=== PATIENT | female | born 1960 | race Caucasian/White ===

== ENCOUNTER → 2019-01-13 | Outpatient (CLI) | payer BC ==
[2019-01-13 09:56] LABS: INR 0.8 (<1.2); Partial Thromboplastin Time 24.7 sec (22.0-30.0); Prothrombin Time 9.4 sec (9.0-12.0)
[2019-01-13 10:04] LABS: Appearance,Urine Cloudy (Clear); Bacteria,Urine Rare /hpf; Bilirubin,Urine Negative (Negative); Blood,Urine Negative (Negative); Color,Urine Yellow; Glucose,Urine (UA) Negative (Negative); Ketones,Urine Negative (Negative); Leukocyte Esterase,Urine Small (Negative); Mucus,Urine Rare /hpf; Nitrite,Urine Negative (Negative); PH, Urine 5.5 (5.0-8.0); Protein,Urine Negative (Negative); RBC,Urine 1 /hpf (0-5); Specific Gravity,Urine 1.014 (1.001-1.035); Squamous Epithelial Cell,Urine 10 /hpf (0-4); Urobilinogen,Urine <2.0 mg/dL (<2.0); WBC,Urine 9 /hpf (0-5)
[2019-01-13 10:15] LABS: ALT 19 U/L (9-52); AST 18 U/L (14-36); African American GFR (CKD) >90 (>60 ml/min/1.73 sqM); Albumin 4.5 g/dL (3.5-5.0); Alkaline Phosphatase 103 U/L (38-126); Anion Gap 9 mmol/L; Blood Urea Nitrogen 13 mg/dL (7-17); Calcium 9.8 mg/dL (8.4-10.2); Carbon Dioxide 27 mmol/L (22-30); Chloride 102 mmol/L (98-107); Glucose 117 mg/dL (74-99); Potassium 4.7 mmol/L (3.5-5.1); Sodium 138 mmol/L (137-145); Total Bilirubin 0.3 mg/dL (0.2-1.3); Total Protein 7.8 g/dL (6.3-8.2)
== END ==
LOC: LABPAT 08:13
PROVIDERS: ATTEND Orthopaedic Surgery
DX: Z01.818 Encounter for other preprocedural examination (principal); Z01.812 Encounter for preprocedural laboratory examination
CPT/HCPCS: 80053; 81001; 85610; 85730; 87070; 93005

== ENCOUNTER → 2019-01-13 | Outpatient (CLI) | payer BC ==
[2019-01-13 11:09] LABS: Basophils # (A) 0.1 k/uL (0-0.2); Basophils % (A) 2 %; Eosinophils # (A) 0.1 k/uL (0-0.7); Eosinophils % (A) 1 %; HCT 41.3 % (34.0-46.0); HGB 13.5 gm/dL (11.4-16.0); Lymphocytes # (A) 1.2 k/uL (1.0-4.8); Lymphocytes % (A) 16 %; MCH 28.8 pg (25.0-35.0); MCHC 32.7 g/dL (31.0-37.0); Mean Platelet Volume 7.2; Monocytes # (A) 0.4 k/uL (0-1.0); Monocytes % (A) 5 %; Neutrophils # (A) 5.6 k/uL (1.3-7.7); Neutrophils % (A) 75 %; Platelet Count 407 k/uL (150-450); RBC 4.69 m/uL (3.80-5.40); RDW 14.1 % (11.5-15.5); WBC 7.5 k/uL (3.8-10.6)
== END | disposition home or self-care (01) ==
LOC: LABWHC1 08:18
PROVIDERS: ATTEND Family Medicine
DX: M19.90 Unspecified osteoarthritis, unspecified site (principal); Z82.49 Family history of ischemic heart disease and other diseases of the circulatory system; Z11.59 Encounter for screening for other viral diseases; Z83.49 Family history of other endocrine, nutritional and metabolic diseases
CPT/HCPCS: 36415; 84443; 85025; 86803

== ENCOUNTER 2019-01-25 10:58 | Inpatient (IN) | payer BC ==
[~2019-01-25 10:58] MED LIST: ACETAMINOPHEN TAB 500 MG TAB PO ONE; DEXAMETHASONE SOD PHOSPHATE 10 MG/ML 1 ML VIAL IV ONE; HYDROmorphone 0.5 MG/0.5 ML SYRINGE IVP PRN; LIDOCAINE 1% 20 ML VIAL (10MG/ML) FOR IV START INTRADERMA PRN; MELOXICAM 7.5 MG TAB PO ONE; ONDANSETRON 4 MG/2 ML VIAL IVP ONE; ROPIVACAINE 246.25 MG, EPINEPHrine 0.5 MG, KETOROLAC 30 MG, cloNIDine HCL/PF 80 MCG, WA... MISCELLANE ONE; TRANEXAMIC ACID 1,000 MG in SODIUM CHLORIDE 0.9% 100 ML IVPB ONE; fentaNYL (PF) 50 MCG/ML 2 ML AMP IV PRN
[2019-01-25] MEDS: LACTATED RINGERS 1,000 ML IV SCH ×2 (11:50→17:59)
[2019-01-25] MEDS ORDERED: MIDAZOLAM 2 MG/2 ML VIAL IVP ONE (12:21)
[2019-01-25] MEDS ORDERED: MIDAZOLAM 2 MG/2 ML VIAL ONE (12:44)
[2019-01-25] MEDS ORDERED: TRANEXAMIC ACID 1,000 MG/10 ML VIAL ONE (12:44)
[2019-01-25] MEDS ORDERED: PROPOFOL 10 MG/ML 20 ML VIAL IV ONE (12:44)
[2019-01-25] MEDS ORDERED: SODIUM CHLORIDE 0.9% 100 ML BAG ONE (12:44)
[2019-01-25] MEDS ORDERED: fentaNYL (PF) 50 MCG/ML 2 ML AMP ONE (12:44)
[2019-01-25] MEDS ORDERED: LACTATED RINGERS 1,000 ML IV ONE (13:28)
--- NOTE | 2019-01-25 14:29 | P.OP ---
Date of Procedure: 01/25/19 Procedure(s) Performed: PREOPERATIVE DIAGNOSIS: Right hip severe osteoarthritis POSTOPERATIVE DIAGNOSIS: Right hip severe osteoarthritis OPERATION: Right hip total replacement arthroplasty (uncemented implantation with metal on polyethylene articulation). ANESTHESIA: Spinal ESTIMATED BLOOD LOSS: 250 ml. ADON: Barry Villasenor PA-C (assistance with: patient positioning, retraction, exposure, hemostasis, leg positioning, implantation, irrigation, closure, dressing) COMPLICATIONS: None apparent. COMPONENTS IMPLANTED: Orin continuum acetabular cup with cluster holes; continuum longevity 15 elevated liner, 32 mm id; Orin VerSys Fiber Metal stem; VerSys 32 mm femoral head with +10.5 mm neck length extension INDICATIONS: Mrs. Boo is a 58-year-old female with significant end-stage osteoarthritis involving the right hip and commensurate severe symptoms. She presents to the operating room today for total hip replacement. I have discussed the steps of the operation as well as potential risks and complications as being inclusive of, but not limited to: Leading, infection, s carring, discomfort, or vessel and/or nerve damage, need for further surgery, loosening, dislocation, wear, osteolysis, limb length inequality, fracture, blood clot, pulmonary embolism, , persistent limp, and other risks. The patient is aware these risks and wishes to proceed with surgery and has signed a consent form. PROCEDURE: After appropriate consent was obtained, the patient was taken to the operating room and placed in supine position. Spinal anesthetic was administered and after confirmation of adequate anesthesia, the patient was placed into the lateral decubitus position with the right side up. Care was taken to make sure that all pressure points were adequately padded and he was stabilized to the table with a [place] hip positioner. The right hip was prepped and draped in the usual aseptic fashion using a combination of ChloraPrep and alcohol. [place] drape was used for the case and the patient received intravenous antibiotics prior to the incision. "Time out" was called, confirming patient identity, side, procedure, availability of implants and administration of antibiotics and tranexamic acid. The incision was created directly over the greater trochanter and carried slightly posteriorly for a posterior approach to the hip. The incision was then deepened down to subcutaneous tissue and fascia aaron. Fascia aaron was split in line with the incision and split proximally along the fibers of the gluteus valentina. The underlying fibers of the muscle were teased apart using finger dissection and bleeding vessels were picked up and coagulated. Retractor was then placed posteriorly consisting of a blunt Sin. The short external rotators and capsule were exposed using good visualization of the attachment of the external rotators to the femur was established. The short external rotators and capsule were released using electrocautery from their femoral attachments. A hockey stick shaped incision was created in the capsule. Joint fluid was evacuated and the patient's hip was able to be dislocated fairly easily. The patient's femoral head was severely arthritic with eburnated bone present and a 360 degrees hodgson of osteophytes. The femoral neck cut was created approximately 1 cm superior to the lesser trochanter using a reciprocating saw. The femoral head and neck fragment was removed and attention was then directed to the acetabulum. An anterior acetabular retractor was applied followed by posterior retraction of the capsule with a [place] retractor. This afforded good visualization into the acetabular cavity. Soft tissue was removed and residual cartilage within the acetabular vault was removed using a curette. Labrum was removed using a long-handled knife. Attention was then directed to reaming. The size 44 reamer was used first, followed by increasing increments until the final size reamer was used. Please see the implantation sheet for exact sizes used for the components. Once the final reamer had been utilized to expand the socket it was noted that there was a good supportive bone around the acetabular socket and no further reaming needed to be performed. The trial the same size as the last reamer used was then impacted into the acetabular vault and found to have good fit. The acetabular component, one size (2mm) greater than the trial was then called for. The cluster holes were placed posteriorly and the component was impacted in a position of approximately 40 degrees abduction and 20 degrees anteversion. This matched this patient's [place] anteversion and it was noted that the cup had excellent stability without need for additional screw fixation. Attention was then directed to the acetabular liner. The anteversion and abduction angle of the component was noted to be very good. A 15 elevated liner was used and locked into position with the elevation posterior superior. Osteophytes around the posterior and inferior aspect of the acetabulum were trimmed as necessary to prevent any impingement. Attention was then directed back to the proximal femur. Retractors were placed around the proximal femur and box osteotome was used followed by canal finder and trochanteric reamer. Cylindrical reaming was performed. Progressive broaching was then performed starting with a #10 broach and progressing final size, in a position of 15 degrees anteversion. [place] anteversion was within 5 degrees of stem position. The final size broach had excellent fit and fill of the patient's metaphysis and diaphysis. Trial reduction was then performed starting with size 32 mm femoral head and various neck combination of stability, limb length equality, and soft tissue tension. Trial components were then removed. The canal was lavaged and the final size femoral stem component was impacted into position. The implant fit very well and had excellent stability. The femoral head was then impacted onto the [place] taper. Blood and debris were removed from the acetabular component and the hip was then reduced and checked f or stability, limb length and soft tissue tension. These parameters found to be satisfactory, the wound was then thoroughly irrigated with normal saline. Final hemostasis was obtained using electrocautery and IV tranexamic acid, 1 g given at the time of prepping and draping, and another 1 g given at the time of closure. Local anesthetic solution consisting of ropivacaine with epinephrine, clonidine, and ketorolac was also used throughout the case targeting the capsule, fascia, and skin. Closure of the capsule was performed meticulously using #3 Vicryl suture. Four [id number] sutures were placed in the posterior capsule along with repair of the external rotators. The fascia aaron was then repaired using combination of #3 Vicryl suture in interrupted fashion and [place]ill and running fashion. 2-0 Vicryl suture was used for the subcutaneous tissues and 3-0 Quill for the skin. Dermabond or Steri-Strips were then applied. The patient tolerated the procedure well. There were no complications and the wound bed was dry and there was no need for drain placement. Sterile dressing was then applied and the patient was carefully removed from the operating room table, placed on the stretcher and was taken to the recovery room in stable condition. Sponge and needle counts were correct.
[2019-01-25] MEDS ORDERED: hydrOXYzine PAMOATE 25 MG CAP PO PRN (14:52)
[2019-01-25] MEDS ORDERED: HYDROmorphone 1 MG/ML 1 ML SYRINGE IVP PRN (14:52)
[2019-01-25] MEDS ORDERED: DIAZEPAM 5 MG TAB PO PRN (14:52)
[2019-01-25] MEDS ORDERED: HYDROmorphone 0.5 MG/0.5 ML SYRINGE IVP PRN ×2 (14:52)
[2019-01-25] MEDS ORDERED: ACETAMINOPHEN TAB 325 MG TAB PO PRN (14:52)
[2019-01-25] MEDS ORDERED: HYDROcodone/APAP 10-325MG 1 EACH TAB PO PRN (14:52)
[2019-01-25] MEDS ORDERED: traMADol 50 MG TAB PO PRN (14:52)
[2019-01-25] MEDS ORDERED: ONDANSETRON 4 MG/2 ML VIAL IVP PRN (14:52)
[2019-01-25] MEDS ORDERED: MAGNESIUM HYDROXIDE 2,400 MG/10 ML CUP PO PRN (14:52)
[2019-01-25] MEDS ORDERED: TEMAZEPAM 15 MG CAP PO PRN (14:52)
[2019-01-25] MEDS ORDERED: NALOXONE 0.4 MG/ML 1 ML VIAL IV PRN (14:52)
--- NOTE | 2019-01-25 15:30 | XR ---
EXAMINATION TYPE: XR Hip Limited RT DATE OF EXAM: 01/25/2019 Comparison: None Clinical History: 58-year-old female Status post hip surgery, assess surgical alignment Findings: Images show placement of right hip total arthroplasty. Both acetabular cup and femoral stem component s of the prosthesis appear well seated without periprosthetic fracture. Alignment grossly anatomic. S oft tissue air related to recent operation. Impression: Uncomplicated postoperative appearance right total hip arthroplasty.
[2019-01-25 17:50] VITALS: BMI 34.2
[2019-01-25] MEDS: SENNOSIDES-DOCUSATE SODIUM 1 EACH TAB PO SCH (20:59)
[2019-01-25] MEDS: ASPIRIN 325 MG TAB PO SCH (20:59)
[2019-01-25] MEDS: HYDROcodone/APAP 10-325MG 1 EACH TAB PO PRN (21:39)
--- NOTE | 2019-01-25 22:34 | P.CONS ---
History of Present Illness - Reason for Consult Consult date: 01/25/19 Medical management Requesting physician: Tremayne Reilly - Chief Complaint Right hip surgery - History of Present Illness Consultation: This is a very pleasant 58-year-old patient who follows with Dr. Tobar. Patient has undergone right total hip arthroplasty. Has been out of bed. Pain is controlled. No nausea vomiting. No chest pain or shortness of breath. Patient's symptoms came on about 2 years ago. Was starting to finally difficult to walk on it. Conservative management did work. Pain was both with activity and better with rest at the hip joint. 5 decided to proceed with surgery. Patient also got pain of the left hip and also had muscle spasms. at the bedside. Review of systems: GEN.: None EYES: None HEENT: None NECK: None RESPIRATORY: None CARDIOVASCULAR: None GASTROINTESTINAL: None GENITOURINARY: None MUSCULOSKELETAL: As above] LYMPHATICS: None HEMATOLOGICAL: None PSYCHIATRY: None NEUROLOGICAL: None Past medical history: Osteoarthritis, muscle spasm Social history: Does not smoke or drink alcohol. . Works as a high school operations manager. [employer] Family history: Cancer Physical examination: VITAL SIGNS: 97.7, 90, 18, 11 5/76, 94% room air GENERAL: BMI 34.2, propped up in bed, comfortable. EYES: Pupils equal. Conjunctiva normal. HEENT: External appearance of nose and ears normal, oral cavity grossly normal. NECK: JVD not raised; masses not palpable. HEART: First and second heart sounds are normal; no edema. LUNGS: Respiratory rate normal; clear to auscultation. ABDOMEN: Soft, nontender, liver spleen not palpable, no masses palpable. PSYCH: Alert and oriented x3; mood and affect normal. NEUROLOGICAL: Cranial nerves grossly intact; no facial asymmetry, power and sensation grossly intact. LYMPHATICS: No lymph nodes palpable in the axilla and neck MUSCULOSKELETAL: Dressing over the right hip INVESTIGATIONS, reviewed in the clinical context: Labs from 01/13/2019 White count 7.5 hemoglobin 13.5 platelets 407 potassium 4.7 creatinine 0.61 Assessment: -Right total hip arthroplasty -Primary osteoarthritis of both the hips -Obesity BMI 34.2 -Muscle spasms around to both the hips Plan: Venodyne boots in place. Aspirin 325 by mouth twice a day per Dr. Reilly for DVT prophylaxis. Pain control in place. Care was discussed the patient and . Question were answered. Should follow with PCP upon discharge. Thank you Dr. Reilly Past Medical History Past Medical History: Osteoarthritis (OA) History of Any Multi-Drug Resistant Organisms: None Reported Past Surgical History: Orthopedic Surgery Additional Past Surgical History / Comment(s): bone spurs removed toes wilian feet, D&C Past Anesthesia/Blood Transfusion Reactions: No Reported Reaction Past Psychological History: No Psychological Hx Reported Smoking Status: Never smoker Past Alcohol Use History: Occasional Past Drug Use History: None Reported - Past Family History Father Family Medical History: Cancer Medications and Allergies Home Medications Medication Instructions Recorded Confirmed Type Cyclobenzaprine [Flexeril] 10 mg PO TID PRN 01/22/19 01/25/19 History Allergies Allergy/AdvReac Type Severity Reaction Status Date / Time clindamycin Allergy Rash/Hives Verified 01/25/19 11:45 erythromycin base AdvReac Nausea & Verified 01/25/19 11:45 Vomiting Physical Exam Vitals: Vital Signs Temp Pulse Resp BP Pulse Ox 01/25/19 20:17 97.7 F 90 18 115/76 94 L 01/25/19 17:53 16 01/25/19 15:50 90 16 129/63 95 01/25/19 15:35 85 16 122/66 98 01/25/19 15:20 90 16 121/65 95 01/25/19 15:05 88 16 123/69 96 01/25/19 14:51 99 16 123/69 99 01/25/19 11:45 97.9 F 111 H 16 128/67 96 Intake and Output 01/25/19 01/25/19 01/25/19 06:59 14:59 22:59 Intake Total 1650 325 Output Total 50 125 Balance 1600 200 Intake: IV 1650 Intake, IV Titration 75 Amount Lactated Ringers 1,000 ml 75 @ 75 mls/hr IV .[id number] ARA Rx#:[id number] Oral 250 Output: Urine 125 Estimated Blood Loss 50 Other: Voiding Method Toilet # Voids 1 Weight 84.822 kg
[2019-01-26] MEDS: LACTATED RINGERS 1,000 ML IV SCH ×3 (01:03→03:50)
[2019-01-26] MEDS: HYDROcodone/APAP 10-325MG 1 EACH TAB PO PRN ×3 (03:49→19:12)
[2019-01-26 07:18] LABS: Basophils # (A) 0.1 k/uL (0-0.2); Basophils % (A) 1 %; Eosinophils # (A) 0.1 k/uL (0-0.7); Eosinophils % (A) 1 %; HCT 34.3 % (34.0-46.0); HGB 11.4 gm/dL (11.4-16.0); Lymphocytes # (A) 1.3 k/uL (1.0-4.8); Lymphocytes % (A) 11 %; MCH 29.2 pg (25.0-35.0); MCHC 33.2 g/dL (31.0-37.0); MCV 88.1 fL (80.0-100.0); Mean Platelet Volume 6.8; Monocytes # (A) 0.5 k/uL (0-1.0); Monocytes % (A) 5 %; Neutrophils # (A) 9.2 k/uL (1.3-7.7); Neutrophils % (A) 82 %; Platelet Count 329 k/uL (150-450); RBC 3.89 m/uL (3.80-5.40); RDW 14.3 % (11.5-15.5); WBC 11.2 k/uL (3.8-10.6)
[2019-01-26] MEDS: ASPIRIN 325 MG TAB PO SCH ×2 (08:33→20:37)
--- NOTE | 2019-01-26 09:39 | P.PN ---
Subjective Progress Note Date: 01/26/19 Principal diagnosis: Right PAOLA Patient is seen at bedside this morning. She is postop day #1 from right total hip arthroplasty. She has pain at the surgical site as expected but denies any new complaints. She denies numbness, tingling or calf pain. Review of systems is negative for fever, chills, chest pain, shortness of breath or other Objective - Vital Signs Vital signs: Vital Signs Temp 98.1 F 01/26/19 06:55 Pulse 90 01/26/19 06:55 Resp 16 01/26/19 06:55 BP 114/77 01/26/19 06:55 Pulse Ox 93 L 01/26/19 06:55 Intake & Output 01/25/19 01/26/19 01/26/19 18:59 06:59 18:59 Intake Total 1650 325 110 Output Total 175 Balance 1475 325 110 Weight 84.822 kg Intake: IV 1650 Intake, IV Titration 75 Amount Lactated Ringers 1,000 ml 75 @ 75 mls/hr IV .[id number] ARA Rx#:[id number] Oral 250 110 Output: Urine 125 Estimated Blood Loss 50 Other: Voiding Method Toilet # Voids 1 - Exam Inspection reveals a benign surgical wound. There is no active bleeding or drainage. Neurovascular status is intact throughout the lower extremity with motor and sensation fully intact. Calf is soft and nontender. 2+ dorsalis pedis pulse and less than 2 second cap refill is present. - Constitutional General appearance: Present: no acute distress - Labs CBC & Chem 7: 01/26/19 06:03 Labs: Abnormal Lab Results - Last 24 Hours (Table) 01/26/19 Range/Units 06:03 WBC 11.2 H (3.8-10.6) k/uL Neutrophils # 9.2 H (1.3-7.7) k/uL Assessment and Plan (1) S/P total hip arthroplasty Narrative/Plan: She will continue with routine postop orthopedic protocol including pain management, wound care, PT, DVT prophylaxis and medical management. Expect that she will transfer to home tomorrow Current Visit: Yes Status: Acute Priority: Medium Code(s): Z96.649 - PRESENCE OF UNSPECIFIED ARTIFICIAL HIP JOINT SNOMED Code(s): 143829653660 Time with Patient: Less than 30
[2019-01-26] MEDS ORDERED: MULTIVITAMINS, THERA 1 EACH TAB PO SCH (12:00)
[2019-01-26] MEDS: SENNOSIDES-DOCUSATE SODIUM 1 EACH TAB PO SCH (20:37)
--- NOTE | 2019-01-26 23:16 | P.PN ---
Progress Note - Text Progress Note Date: 01/26/19 - Chief Complaint Right hip surgery interval history: This is a very pleasant 58-year-old patient who follows with Dr. Tobar. Patient has undergone right total hip arthroplasty. Has been out of bed. Pain is controlled. No nausea vomiting. No chest pain or shortness of breath. Patient's symptoms came on about 2 years ago. Was starting to finally difficult to walk on it. Conservative management did work. Pain was both with activity a nd better with rest at the hip joint. 5 decided to proceed with surgery. Patient also got pain of the left hip and also had muscle spasms. at the bedside. today-feeling better. Some pain is present.. Did tolerate her diet. No nausea vomiting. Did work with therapy. Review of systems: Was done for constitutional, cardiovascular, GI, pulmonary.musculoskeletal, relevant finding as above Active Medications Acetaminophen (Tylenol Tab) 650 mg PO Q4HR PRN PRN Reason: Pain Scale 1 to 5 Hydrocodone Bitart/Acetaminophen ([place] 10) 1 each PO Q6H PRN PRN Reason: Pain Scale 1 to 5 Last Admin: 01/26/19 19:12 Dose: 1 each Documented by: Hydrocodone Bitart/Acetaminophen ([place] 10) 2 each PO Q6H PRN PRN Reason: Pain Scale 6 to 10 Aspirin (Aspirin) 325 mg PO BID [facility] Last Admin: 01/26/19 20:37 Dose: 325 mg Documented by: Diazepam (Valium) 2.5 mg PO Q8HR PRN PRN Reason: Mild Spasms Hydromorphone HCl (Dilaudid) 0.25 mg IVP Q3HR PRN PRN Reason: Pain Scale 1 to 3 Hydromorphone HCl (Dilaudid) 1 mg IVP Q3HR PRN PRN Reason: Pain Scale 7 to 10 Hydromorphone HCl (Dilaudid) 0.5 mg IVP Q3HR PRN PRN Reason: Pain Scale 4 to 6 Last Admin: 01/25/19 17:37 Dose: 0.5 mg Documented by: Hydroxyzine Pamoate (Vistaril) 25 mg PO Q4HR PRN PRN Reason: Nausea, Anxiety, Pain Control Lactated Ringer's (Lactated Ringers) 1,000 mls @ 75 mls/hr IV .[id number] [facility] Last Admin: 01/26/19 03:50 Dose: 75 mls/hr Documented by: Lidocaine HCl (.Xylocaine 1% Inj (10mg/Ml) For Iv Start) 0.1 ml INTRADERMA PER PROTOCOL PRN PRN Reason: IV Start Last Admin: 01/25/19 11:48 Dose: 0.1 ml Documented by: Magnesium Hydroxide (Milk Of Magnesia) 2,400 mg PO DAILY PRN PRN Reason: Constipation Multivitamins (Theragran) 1 each PO DAILY@1200 [facility] Last Admin: 01/26/19 13:05 Dose: 1 each Documented by: Naloxone HCl (Narcan) 0.2 mg IV Q2M PRN PRN Reason: Opioid Reversal Ondansetron HCl (Zofran) 4 mg IVP Q6HR PRN PRN Reason: Nausea And Vomiting Senna/Docusate Sodium (Senokot-S) 2 each PO HS [facility] Last Admin: 01/26/19 20:37 Dose: 2 each Documented by: Temazepam (Restoril) 15 mg PO HS PRN PRN Reason: Insomnia Tramadol HCl (Ultram) 50 mg PO Q6H PRN PRN Reason: Mild Pain Physical examination: VITAL SIGNS:98.1, 90, 16, 11 4/77, 93% room air GENERAL: sitting up in a chair, comfortable EYES: Pupils equal. Conjunctiva normal. HEENT: External appearance of nose and ears normal, oral cavity grossly normal. NECK: JVD not raised; masses not palpable. HEART: First and second heart sounds are normal; no edema. LUNGS: Respiratory rate normal; clear to auscultation. ABDOMEN: Soft, nontender, liver spleen not palpable, no masses palpable. PSYCH: Alert and oriented x3; mood and affect normal. MUSCULOSKELETAL: Dressing over the right hip INVESTIGATIONS, reviewed in the clinical context: White count 11.2 hemoglobin 11.4 Labs from 01/13/2019 White count 7.5 hemoglobin 13.5 platelets 407 potassium 4.7 creatinine 0.61 Assessment: -Right total hip arthroplasty -Primary osteoarthritis of both the hips -Obesity BMI 34.2 -Muscle spasms around to both the hips -Acute postop blood loss anemia, as expected from surgery Plan: continue current medication treatment plan. Add ferrous sulfate. Care discussed with the patient. Thank you Dr. Reilly
[2019-01-27] MEDS: HYDROcodone/APAP 10-325MG 1 EACH TAB PO PRN ×3 (01:24→13:18)
[2019-01-27] MEDS ORDERED: FERROUS SULFATE 325 MG TAB PO SCH (07:30)
[2019-01-27 08:48] VITALS: TEMP 97.4
[2019-01-27] MEDS: ASPIRIN 325 MG TAB PO SCH (10:16)
--- NOTE | 2019-01-27 10:17 | P.DS ---
Providers Date of admission: 01/25/19 10:58 Expected date of discharge: 01/27/19 Attending physician: Tremayne Reilly Consults: 01/25/19 14:52 Consult Physician Routine Consulting Provider: Leonel Hunter Consult Reason/Comments: post op medical management Do you want consulting provider notified?: Yes Primary care physician: Ru Tobar - Discharge Diagnosis(es) (1) S/P total hip arthroplasty Current Visit: Yes Status: Acute Priority: Medium Plan - Discharge Summary Discharge Rx Participant: Yes New Discharge Prescriptions: New Aspirin 325 mg PO BID #60 tab Docusate [Colace] 100 mg PO BID #60 capsule Cyclobenzaprine [Flexeril] 10 mg PO TID PRN #21 tab PRN Reason: Spasms HYDROcodone/APAP 10-325MG [[place] 10-325] 1 tab PO Q4HR PRN #42 tab PRN Reason: Pain No Action Cyclobenzaprine [Flexeril] 10 mg PO TID PRN PRN Reason: Pain Discharge Medication List Cyclobenzaprine [Flexeril] 10 mg PO TID PRN 01/22/19 [History] Aspirin 325 mg PO BID #60 tab 01/27/19 [Rx] Cyclobenzaprine [Flexeril] 10 mg PO TID PRN #21 tab 01/27/19 [Rx] Docusate [Colace] 100 mg PO BID #60 capsule 01/27/19 [Rx] HYDROcodone/APAP 10-325MG [[place] 10-325] 1 tab PO Q4HR PRN #42 tab 01/27/19 [Rx] Follow up Appointment(s)/Referral(s): [facility], [NON-STAFF] - As Needed Tremayne Reilly MD [STAFF PHYSICIAN] - 02/09/19 10:40 am Patient Instructions/Handouts: Total Hip Replacement (DC) Activity/Diet/Wound Care/Special Instructions: Keep wound clean and dry Take meds as directed Follow-up with Dr. Reilly in office Weight bear as tolerated May shower in 3 days if no bleeding Discharge Disposition: HOME WITH HOME HEALTH SERVICES
[2019-01-27 10:33] VITALS: BP 129/82; PULSE 95; RESP 13
--- NOTE | 2019-01-27 23:17 | P.PN ---
Progress Note - Text Progress Note Date: 01/27/19 - Chief Complaint Right hip surgery interval history: This is a very pleasant 58-year-old patient who follows with Dr. Tobar. Patient has undergone right total hip arthroplasty. Has been out of bed. Pain is controlled. No nausea vomiting. No chest pain or shortness of breath. Patient's symptoms came on about 2 years ago. Was starting to finally difficult to walk on it. Conservative management did work. Pain was both with activity and better with rest at the hip joint. Finally decided to proceed with surgery. Patient also got pain of the left hip and also had muscle spasms. today-continues to feel better. Patient better. Did tolerate that. Did work with therapy. Review of systems: Was done for constitutional, cardiovascular, GI, pulmonary.musculoskeletal, relevant finding as above Current medications reviewed in today's electronic records Physical examination: VITAL SIGNS: 97.4, 96, 93, 122/82, 98% room air GENERAL: Sitting up, comfortable EYES: Pupils equal. Conjunctiva normal. HEENT: External appearance of nose and ears normal, oral cavity grossly normal. NECK: JVD not raised; masses not palpable. HEART: First and second heart sounds are normal; no edema. LUNGS: Respiratory rate normal; clear to auscultation. ABDOMEN: Soft, nontender, liver spleen not palpable, no masses palpable. PSYCH: Alert and oriented x3; mood and affect normal. MUSCULOSKELETAL: Dressing over the right hip INVESTIGATIONS, reviewed in the clinical context: White count 11.2 hemoglobin 11.4 Labs from 01/13/2019 White count 7.5 hemoglobin 13.5 platelets 407 potassium 4.7 creatinine 0.61 Assessment: -Right total hip arthroplasty -Primary osteoarthritis of both the hips -Obesity BMI 34.2 -Muscle spasms around to both the hips -Acute postop blood loss anemia, as expected from surgery Plan: Stable. Continue current medication treatment plan. Follow with Dr. Tobar upon discharge Thank you Dr. Reilly
== END 2019-01-27 13:46 | disposition home health service (06) | DRG 470 ==
LOC: 2ORMAIN 10:58 → 4SSUR 16:01
PROVIDERS: ADMIT Orthopaedic Surgery; ATTEND Orthopaedic Surgery
PROC: 0SR902A Replacement of Right Hip Joint with Metal on Polyethylene Synthetic Substitute, Uncemented, Open Approach (ICD-10-PCS; principal; 2019-01-25 12:30)
DX: M16.0 Bilateral primary osteoarthritis of hip (principal); D62 Acute posthemorrhagic anemia; E66.9 Obesity, unspecified; Z68.34 Body mass index [BMI] 34.0-34.9, adult
CPT/HCPCS: 73501; 85025; 86850; 86900; 86901; 88300

== ENCOUNTER → 2019-03-18 | Outpatient (CLI) | payer BC ==
[2019-03-18 08:13] LABS: HCT 40.9 % (34.0-46.0); HGB 13.1 gm/dL (11.4-16.0); MCH 28.8 pg (25.0-35.0); MCV 90.2 fL (80.0-100.0); Mean Platelet Volume 7.8; Platelet Count 327 k/uL (150-450); RBC 4.53 m/uL (3.80-5.40); RDW 13.5 % (11.5-15.5); WBC 7.4 k/uL (3.8-10.6)
[2019-03-18 08:23] LABS: Appearance,Urine Cloudy (Clear); Bacteria,Urine Occasional /hpf; Bilirubin,Urine Negative (Negative); Blood,Urine Negative (Negative); Color,Urine Yellow; Glucose,Urine (UA) Negative (Negative); Hyaline Casts,Urine 1 /lpf (0-2); Ketones,Urine Negative (Negative); Leukocyte Esterase,Urine Negative (Negative); Mucus,Urine Moderate /hpf; Nitrite,Urine Negative (Negative); PH, Urine 5.5 (5.0-8.0); Protein,Urine Negative (Negative); Specific Gravity,Urine 1.019 (1.001-1.035); Squamous Epithelial Cell,Urine 10 /hpf (0-4); Urobilinogen,Urine <2.0 mg/dL (<2.0); WBC,Urine 1 /hpf (0-5)
[2019-03-18 08:27] LABS: INR 0.9 (<1.2); Partial Thromboplastin Time 24.9 sec (22.0-30.0); Prothrombin Time 9.5 sec (9.0-12.0)
[2019-03-18 08:40] LABS: ALT 14 U/L (4-34); AST 20 U/L (14-36); African American GFR (CKD) >90 (>60 ml/min/1.73 sqM); Albumin 4.6 g/dL (3.5-5.0); Alkaline Phosphatase 86 U/L (38-126); Anion Gap 10 mmol/L; Blood Urea Nitrogen 14 mg/dL (7-17); Calcium 9.8 mg/dL (8.4-10.2); Carbon Dioxide 28 mmol/L (22-30); Chloride 101 mmol/L (98-107); Glucose 114 mg/dL (74-99); Non-African American GFR(CKD) >90 (>60 ml/min/1.73 sqM); Potassium 4.1 mmol/L (3.5-5.1); Sodium 139 mmol/L (137-145); Total Bilirubin 0.4 mg/dL (0.2-1.3); Total Protein 7.7 g/dL (6.3-8.2)
== END | disposition home or self-care (01) ==
LOC: LABWHC1 07:20
PROVIDERS: ATTEND Orthopaedic Surgery
DX: Z01.812 Encounter for preprocedural laboratory examination (principal); M16.12 Unilateral primary osteoarthritis, left hip; Z51.81 Encounter for therapeutic drug level monitoring
CPT/HCPCS: 36415; 80053; 81001; 85027; 85610; 85730; 87070

== ENCOUNTER 2019-03-29 06:28 | Inpatient (IN) | payer BC ==
[2019-03-22 14:04] VITALS: BMI 35.6
[~2019-03-29 06:28] MED LIST changes: -DEXAMETHASONE SOD PHOSPHATE 10 MG/ML 1 ML VIAL IV ONE; -ROPIVACAINE 246.25 MG, EPINEPHrine 0.5 MG, KETOROLAC 30 MG, cloNIDine HCL/PF 80 MCG, WA... MISCELLANE ONE; -fentaNYL (PF) 50 MCG/ML 2 ML AMP IV PRN
[2019-03-29] MEDS: LACTATED RINGERS 1,000 ML IV SCH (07:08)
[2019-03-29] MEDS ORDERED: SODIUM CHLORIDE 0.9% 100 ML BAG ONE (07:28)
[2019-03-29] MEDS ORDERED: diphenhydrAMINE 50 MG/ML 1 ML VIAL ONE (07:28)
[2019-03-29] MEDS ORDERED: MIDAZOLAM 2 MG/2 ML VIAL ONE (07:28)
[2019-03-29] MEDS ORDERED: fentaNYL (PF) 50 MCG/ML 2 ML AMP ONE (07:28)
[2019-03-29] MEDS ORDERED: PROPOFOL 10 MG/ML 20 ML VIAL IV ONE (07:28)
[2019-03-29] MEDS ORDERED: TRANEXAMIC ACID 1,000 MG/10 ML VIAL ONE (07:28)
[2019-03-29] MEDS ORDERED: ceFAZolin 3,000 MG in SODIUM CHLORIDE 0.9% IRRIGATIO 3,000 ML IRRIGATION ONE (07:36)
[2019-03-29] MEDS: ROPIVACAINE 246.25 MG, EPINEPHrine 0.5 MG, KETOROLAC 30 MG, cloNIDine HCL/PF 80 MCG, WA... MISCELLANE ONE ×10 (08:07→08:50)
[2019-03-29] MEDS ORDERED: LACTATED RINGERS 1,000 ML IV ONE (08:18)
--- NOTE | 2019-03-29 09:07 | P.OP ---
Date of Procedure: 03/29/19 Procedure(s) Performed: PREOPERATIVE DIAGNOSIS: Left hip severe osteoarthritis POSTOPERATIVE DIAGNOSIS: Left hip severe osteoarthritis OPERATION: Left hip total replacement arthroplasty (uncemented implantation with ceramic on polyethylene articulation). ANESTHESIA: Spinal ESTIMATED BLOOD LOSS: 150 ml. EMERGENCY SERVICES DIRECTOR: Naomie Horn PA-C (assistance with: patient positioning, retraction, exposure, hemostasis, leg positioning, implantation, irrigation, closure, dressing) COMPLICATIONS: None apparent. COMPONENTS IMPLANTED: Orin continuum acetabular cup with cluster holes; continuum longevity 15 elevated liner, 32 mm id; Orin VerSys Fiber Metal stem; VerSys 32 mm femoral head with +7 mm neck length extension INDICATIONS: Mrs. Boo is a 58-year-old female with significant end-stage osteoarthritis involving the left hip and commensurate severe symptoms. She has successfully undergone right hip replacement approximately 2-1/2 months ago. She presents to the operating room today for total hip replacement. I have discussed the steps of the operation as well as potential risks and complications as being inclusive of, but not limited to: Leading, infection, scarring, discomfort, or vessel and/or nerve damage, need for further surgery, loosening, dislocation, wear, osteolysis, limb length inequality, fracture, blood clot, pulmonary embolism, , persistent limp, and other risks. The patient is aware these risks and wishes to proceed with surgery and has signed a consent form. PROCEDURE: After appropriate consent was obtained, the patient was taken to the operating room and placed in supine position. Spinal anesthetic was administered and after confirmation of adequate anesthesia, the patient was placed into the lateral decubitus position with the left side up. Care was taken to make sure that all pressure points were adequately padded and he was stabilized to the table with a [place] hip positioner. The left hip was prepped and draped in the usual aseptic fashion using a combination of DuraPrep and alcohol. [place] drape was used for the case and the patient received intravenous antibiotics prior to the incision. "Time out" was called, confirming patient identity, side, procedure, availability of implants and administration of antibiotics. The incision was created directly over the greater trochanter and carried slightly posteriorly for a posterior approach to the hip. The incision was then deepened down to subcutaneous tissue and fascia aaorn. Fascia aaron was split in line with the incision and split proximally along the fibers of the gluteus valentina. The underlying fibers of the muscle were teased apart using finger dissection and bleeding vessels were picked up and coagulated. Retractor was then placed posteriorly consisting of a blunt Johnson. The short external rotators and capsule were exposed using good visualization of the attachment of the external rotators to the femur was established. The short external rotators and capsule were released using electrocautery from their femoral attachments. A hockey stick shaped incision was created in the capsule. Joint fluid was evacuated and the patient's hip was able to be dislocated fairly easily. The patient's femoral head was severely arthritic with eburnated bone present and a 360 degrees hodgson of osteophytes. The femoral neck cut was created approximately 1 cm superior to the lesser trochanter using a reciprocating saw. The femoral head and neck fragment was removed and attention was then directed to the acetabulum. An anterior acetabular retractor was applied followed by posterior retraction of the capsule with a Meyerding retractor. This afforded good visualization into the acetabular cavity. Soft tissue was removed and residual cartilage within the acetabular vault was removed using a curette. Labrum was removed using a long-handled knife. Attention was then directed to reaming. The size 44 reamer was used first, followed by increasing increments until the final size reamer was used. Please see the implantation sheet for exact sizes used for the components. Once the final reamer had been utilized to expand the socket it was noted that there was a good supportive bone around the acetabular socket and no further reaming needed to be performed. The trial the same size as the last reamer used was then impacted into the acetabular vault and found to have good fit. The acetabular component, one size (2mm) greater than the trial was then called for. The cluster holes were placed posteriorly and the component was impacted in a position of approximately 40 degrees abduction and 20 degrees anteversion. This matched this patient's [place] anteversion and it was noted that the cup had excellent stability without need for additional screw fixation. Attention was then directed to the acetabular liner. The anteversion and abduction angle of the component was noted to be very good. A 15 elevated liner was used and locked into position. Osteophytes around the posterior and inferior aspect of the acetabulum were trimmed as necessary to prevent any impingement. Attention was then directed back to the proximal femur. Retractors were placed around the proximal femur and box osteotome was used followed by canal finder and trochanteric reamer. Cylindrical reaming was performed. Progressive broaching was then performed starting with a #10 broach and progressing final size, in a position of 15 degrees anteversion. [place] anteversion was within 5 degrees of stem position. The final size broach had excellent fit and fill of the patient's metaphysis and diaphysis. Trial reduction was then performed starting with size 32 mm femoral head and various neck combination of stability, limb length equality, and soft tissue tension. Trial components were then removed. The canal was lavaged and the final size femoral stem component was impacted into position. The implant fit very well and had excellent stability. The femoral head was then impacted onto the [place] taper. Blood and debris were removed from the acetabular component and the hip was then reduced and checked for stability, limb length and soft tissue tension. These parameters found to be satisfactory, the wound was then thoroughly irrigated with normal saline. Final hemostasis was obtained using electrocautery and IV tranexamic acid, 1 g given at the time of prepping and draping, and another 1 g given at the time of closure. Local anesthetic solution consisting of ropivacaine with epinephrine, clonidine, and ketorolac was also used throughout the case targeting the capsule, fascia, and skin. Closure of the capsule was performed meticulously using #3 Vicryl suture. Four [id number] sutures were placed in the posterior capsule along with repair of the external rotators. The fascia aaron was then repaired using combination of #3 Vicryl suture in interrupted fashion and Quill and running fashion. 2-0 Vicryl suture was used for the subcutaneous tissues and 3-0 Quill for the skin. Dermabond or Steri-Strips were then applied. The patient tolerated the procedure well. There were no complications and the wound bed was dry and there was no need for drain placement. Sterile dressing was then applied and the patient was carefully removed from the operating room table, placed on the stretcher and was taken to the recovery room in stable condition. Sponge and needle counts were correct.
[2019-03-29] MEDS ORDERED: HYDROmorphone 0.5 MG/0.5 ML SYRINGE IVP PRN (09:52)
[2019-03-29] MEDS ORDERED: ONDANSETRON 4 MG/2 ML VIAL IVP PRN (09:52)
[2019-03-29] MEDS ORDERED: HYDROcodone/APAP 5-325MG 1 EACH TAB PO PRN (09:52)
[2019-03-29] MEDS ORDERED: NALOXONE 0.4 MG/ML 1 ML VIAL IV PRN (09:52)
[2019-03-29] MEDS ORDERED: MEPERIDINE 50 MG/ML SYRINGE IVP ONE (10:07)
--- NOTE | 2019-03-29 10:32 | XR ---
EXAMINATION TYPE: XR Hip Limited LT DATE OF EXAM: 03/29/2019 CLINICAL HISTORY: Postoperative evaluation TECHNIQUE: Single portable view of the left hip was submitted. FINDINGS: Noted are changes of total hip arthroplasty with femoral and acetabular components appearin g well seated. Alignment is anatomic. Postsurgical soft tissue changes are evident. IMPRESSION: Satisfactory postoperative alignment
[2019-03-29] MEDS: HYDROcodone/APAP 5-325MG 1 EACH TAB PO PRN ×3 (12:12→17:21)
[2019-03-29] MEDS: SENNOSIDES-DOCUSATE SODIUM 1 EACH TAB PO SCH (15:11)
[2019-03-29] MEDS: HYDROmorphone 0.5 MG/0.5 ML SYRINGE IVP PRN ×3 (15:14→23:33)
[2019-03-29] MEDS: hydrOXYzine PAMOATE 25 MG CAP PO PRN (17:50)
[2019-03-29] MEDS: ASPIRIN 325 MG TAB PO SCH (20:14)
[2019-03-30] MEDS: LACTATED RINGERS 1,000 ML IV SCH (03:40)
[2019-03-30 07:16] LABS: Basophils % (A) 0 %; Eosinophils # (A) 0.1 k/uL (0-0.7); Eosinophils % (A) 1 %; HCT 32.8 % (34.0-46.0); HGB 10.8 gm/dL (11.4-16.0); Lymphocytes % (A) 14 %; MCHC 32.9 g/dL (31.0-37.0); MCV 91.2 fL (80.0-100.0); Mean Platelet Volume 7.7; Monocytes # (A) 0.4 k/uL (0-1.0); Monocytes % (A) 6 %; Neutrophils # (A) 5.5 k/uL (1.3-7.7); Neutrophils % (A) 77 %; Platelet Count 256 k/uL (150-450); RDW 13.1 % (11.5-15.5); WBC 7.1 k/uL (3.8-10.6)
[2019-03-30] MEDS: HYDROmorphone 1 MG/ML 1 ML SYRINGE IVP PRN ×2 (07:17→17:14)
[2019-03-30] MEDS ORDERED: KETOROLAC 30 MG/ML 1 ML VIAL IVP STA (08:59)
[2019-03-30] MEDS ORDERED: DIAZEPAM 5 MG TAB PO STA (09:01)
[2019-03-30] MEDS: ASPIRIN 325 MG TAB PO SCH (09:13)
--- NOTE | 2019-03-30 09:18 | P.PN ---
Subjective Progress Note Date: 03/30/19 Principal diagnosis: Primary osteoarthritis left hip. This is a 58-year-old female with history of bilateral osteoarthritis of the hips. She is status post total right hip arthroplasty in January 2019. She is now postoperative day #1 status post total left hip arthroplasty. She is having significant pain and discomfort. She states the pain is in the groin and the buttock which radiates down to the knee. She rates her pain 6/10. Objective - Vital Signs Vital signs: Vital Signs Temp 98.3 F 03/30/19 07:11 Pulse 89 03/30/19 07:11 Resp 16 03/30/19 07:11 BP 127/75 03/30/19 07:11 Pulse Ox 98 03/30/19 07:11 Intake & Output 03/29/19 03/30/19 03/30/19 18:59 06:59 18:59 Intake Total 1451 560 Output Total 150 Balance 1301 560 Weight 89.5 kg Intake: IV 1451 Intake, IV Titration 240 Amount Lactated Ringers 1,000 ml 240 @ 20 mls/hr IV .Q24H ARA Rx#:[id number] Oral 320 Output: Estimated Blood Loss 150 Other: Voiding Method Toilet # Voids 2 1 - Exam This is a pleasant 58-year-old female in mild distress due to pain. She is crying during exam today. She is able to wiggle toes. Pedal pulses are +2/4. Incision looks good with no sign of infection. Dermabond tape is intact. Dressing is clean, dry and intact. Neurovascular status to the lower extremities intact. - Labs CBC & Chem 7: 03/30/19 06:09 Labs: Abnormal Lab Results - Last 24 Hours (Table) 03/30/19 Range/Units 06:09 RBC 3.60 L (3.80-5.40) m/uL Hgb 10.8 L (11.4-16.0) gm/dL Hct 32.8 L (34.0-46.0) % Assessment and Plan (1) History of total right hip arthroplasty Current Visit: Yes Status: Acute Code(s): Z96.641 - PRESENCE OF RIGHT ARTIFICIAL HIP JOINT SNOMED Code(s): 898064462962 (2) Osteoarthritis of left hip Current Visit: Yes Status: Acute Code(s): M16.12 - UNILATERAL PRIMARY OSTEOARTHRITIS, LEFT HIP SNOMED Code(s): 802683217629192 (3) Status post total hip replacement, left Current Visit: Yes Status: Acute Code(s): Z96.642 - PRESENCE OF LEFT ARTIFICIAL HIP JOINT SNOMED Code(s): 257734359792 Plan: The clinical findings are discussed with the patient and her family. I will add Toradol and Valium and increased her Van to 7.5 mg. We'll keep her inpatient today for pain management. Plan discharged to home tomorrow if stable.
[2019-03-30] MEDS: DOCUSATE 100 MG CAP PO SCH ×2 (10:22→20:01)
[2019-03-30] MEDS: HYDROcodone/APAP 7.5-325MG 1 EACH TAB PO PRN ×2 (12:07→18:27)
[2019-03-30] MEDS: hydrOXYzine PAMOATE 25 MG CAP PO PRN ×2 (12:08→18:27)
[2019-03-30] MEDS: ASPIRIN 81 MG PO SCH (19:59)
[2019-03-30] MEDS: SENNOSIDES-DOCUSATE SODIUM 1 EACH TAB PO SCH (20:01)
[2019-03-30] MEDS: KETOROLAC 30 MG/ML 1 ML VIAL IVP PRN (20:01)
[2019-03-31] MEDS: DIAZEPAM 2 MG TAB PO PRN (02:11)
[2019-03-31] MEDS: KETOROLAC 30 MG/ML 1 ML VIAL IVP PRN (02:40)
[2019-03-31] MEDS: LACTATED RINGERS 1,000 ML IV SCH (04:59)
--- NOTE | 2019-03-31 09:05 | P.DS ---
Providers Date of admission: 03/29/19 06:28 Expected date of discharge: 03/31/19 Attending physician: Tremayne Reilly Primary care physician: Ru Tobar - Discharge Diagnosis(es) (1) History of total right hip arthroplasty Current Visit: Yes Status: Acute (2) Osteoarthritis of left hip Current Visit: Yes Status: Acute (3) Status post total hip replacement, left Current Visit: Yes Status: Acute Hospital Course: This is a 58-year-old female with known history of degenerative arthritis of the left hip. The patient presents for evaluation. After discussion and consideration patient elects to proceed with total left hip arthroplasty. The patient is seen preoperatively by her primary care physician and cleared for surgery. Patient is admitted to [facility] on 03/29/2019 for total hip arthroplasty. The procedures performed without complication or sequelae. The patient is having issues with pain management. She is doing a little bit better today. Labs and vital signs are stable on day of discharge. On day of discharge patient's hip incision is healing well. There is minimal erythema. There is no drainage noted at this time. There is minimal soft tissue swelling to the hip and thigh. Patient has full foot and ankle motion without difficulty or pain. Neurovascular status to the left lower extremity is intact. Patient is discharged to home in good condition. Please see med rec for accura te list of home medications. Plan - Discharge Summary Discharge Rx Participant: Yes New Discharge Prescriptions: New Aspirin 325 mg PO BID 30 Days #60 tab Meloxicam 15 mg PO DAILY #30 tablet HYDROcodone/APAP 7.5-325MG [[place] 7.5-325] 1 - 2 tab PO Q4-6H PRN #50 tab PRN Reason: Pain Sennosides-Docusate Sodium [Senokot-S] 1 tab PO BID #60 tablet Diazepam [Valium] 2 mg PO Q8HR PRN #15 tab PRN Reason: pain/spasm Discharge Medication List Aspirin 325 mg PO BID 30 Days #60 tab 03/29/19 [Rx] Diazepam [Valium] 2 mg PO Q8HR PRN #15 tab 03/31/19 [Rx] HYDROcodone/APAP 7.5-325MG [[place] 7.5-325] 1 - 2 tab PO Q4-6H PRN #50 tab 03/31/19 [Rx] Meloxicam 15 mg PO DAILY #30 tablet 03/31/19 [Rx] Sennosides-Docusate Sodium [Senokot-S] 1 tab PO BID #60 tablet 03/31/19 [Rx] Follow up Appointment(s)/Referral(s): [facility] [place], [NON-STAFF] - Ru Tobar MD [Primary Care Provider] - 1 Week Tremayne Reilly MD [STAFF PHYSICIAN] - 04/14/19 1:45 pm Activity/Diet/Wound Care/Special Instructions: -50% weight-bearing on your operative leg. Use a walker for ambulation. -You may remove your surgical dressing 2 days after your surgery. Following removal of the surgical dressing, perform daily dressing changes. -Elevate and ice operative leg to help reduce swelling and control pain. -Take pain medications as prescribed. Take aspirin as prescribed for blood clot prevention. -Follow-up appointment with Dr. Reilly in the office in 2 weeks. -Call the office with any questions or concerns, Discharge Disposition: HOME SELF-CARE
[2019-03-31] MEDS: HYDROcodone/APAP 7.5-325MG 1 EACH TAB PO PRN ×2 (09:17→19:04)
[2019-03-31] MEDS: hydrOXYzine PAMOATE 25 MG CAP PO PRN ×2 (09:19→19:03)
[2019-03-31] MEDS: MELOXICAM 7.5 MG TAB PO SCH (09:20)
[2019-03-31] MEDS: ASPIRIN 81 MG PO SCH ×2 (09:20→20:07)
[2019-03-31] MEDS: DOCUSATE 100 MG CAP PO SCH ×2 (09:20→20:07)
[2019-03-31] MEDS: SENNOSIDES-DOCUSATE SODIUM 1 EACH TAB PO SCH (20:07)
[2019-04-01] MEDS: DIAZEPAM 2 MG TAB PO PRN (00:59)
[2019-04-01] MEDS: KETOROLAC 30 MG/ML 1 ML VIAL IVP PRN (01:15)
[2019-04-01] MEDS: LACTATED RINGERS 1,000 ML IV SCH (05:54)
[2019-04-01 06:40] LABS: Basophils % (A) 1 %; Eosinophils # (A) 0.1 k/uL (0-0.7); Eosinophils % (A) 2 %; HCT 32.4 % (34.0-46.0); HGB 10.6 gm/dL (11.4-16.0); Lymphocytes # (A) 1.1 k/uL (1.0-4.8); Lymphocytes % (A) 18 %; MCH 29.7 pg (25.0-35.0); MCHC 32.6 g/dL (31.0-37.0); MCV 90.9 fL (80.0-100.0); Mean Platelet Volume 7.8; Monocytes # (A) 0.4 k/uL (0-1.0); Monocytes % (A) 6 %; Neutrophils # (A) 4.3 k/uL (1.3-7.7); Neutrophils % (A) 71 %; Platelet Count 246 k/uL (150-450); RBC 3.57 m/uL (3.80-5.40); RDW 13.2 % (11.5-15.5); WBC 6.1 k/uL (3.8-10.6)
[2019-04-01 07:46] VITALS: BP 124/75; PULSE 91; RESP 15; TEMP 97.8
[2019-04-01] MEDS: ASPIRIN 81 MG PO SCH (08:13)
[2019-04-01] MEDS: MELOXICAM 7.5 MG TAB PO SCH (08:13)
[2019-04-01] MEDS: DOCUSATE 100 MG CAP PO SCH (08:13)
== END 2019-04-01 11:41 | disposition home health service (06) | DRG 470 ==
LOC: 2ORMAIN 06:28 → 4SSUR 09:55
PROVIDERS: ADMIT Orthopaedic Surgery; ATTEND Orthopaedic Surgery
PROC: 0SRB04A Replacement of Left Hip Joint with Ceramic on Polyethylene Synthetic Substitute, Uncemented, Open Approach (ICD-10-PCS; principal; 2019-03-29 07:30)
DX: M16.12 Unilateral primary osteoarthritis, left hip (principal); Z96.641 Presence of right artificial hip joint; Z88.1 Allergy status to other antibiotic agents; Z97.3 Presence of spectacles and contact lenses; Z83.6 Family history of other diseases of the respiratory system
CPT/HCPCS: 73501; 85025; 86850; 86900; 86901; 88300; 88305; 94760